=== PATIENT | male | born 1980 | race Asian ===

== ENCOUNTER 2017-04-17 22:28 | Emergency (ER) | payer MEDICAID ==
[~2017-04-17] VITALS: Ht 182.9 cm; Wt 108.9 kg
[2017-04-17 22:38] VITALS: BP_SYST 123
--- NOTE | 2017-04-18 00:10 | NUR ---
Patient to ER bed 8 to gown for evaluation. Side rails up. Report given to SHANNON MENDIOLA.
--- NOTE | 2017-04-18 00:30 | NUR ---
Patient complaining pain to left 4th finger x 2 days. Patient states 11/10 pain. No other complaints/injuries per patient or as noted.Will continue to monitor.
--- NOTE | 2017-04-18 00:36 | NUR ---
ER Dr. Leong at bedside examining patient.
[2017-04-18 01:14] VITALS: BP_SYST 123
--- NOTE | 2017-04-18 01:14 | NUR ---
Patient given written and verbal discharge instructions and verbalizes understanding. ER MD discussed with patient the results and treatment provided. Patient in stable condition. ID arm band removed. Rx of Keflex and motrin given. Patient educated on pain management and to follow up with PMD in 2-3 days. Pain Scale 0/10 Opportunity for questions provided and answered. Medication side effect fact sheet provided.
== END 2017-04-18 01:14 | disposition home or self-care (01) ==
LOC: SED 22:28
DX: L03.012 Cellulitis of left finger (principal); E11.9 Type 2 diabetes mellitus without complications
CPT/HCPCS: 99283

== ENCOUNTER 2017-07-16 12:50 | Emergency (ER) | payer MEDICAID ==
[~2017-07-16] VITALS: Ht 182.9 cm; Wt 102.1 kg
[2017-07-16 12:54] VITALS: BP_SYST 142
[2017-07-16] MEDS ORDERED: DIPH-TET-PERTUS Vaccine 0.5 ML VIAL (ADACEL) I.M. ONE (13:15)
[2017-07-16] MEDS ORDERED: IBUPROFEN 600 MG TABLET PO ONE (13:15)
[2017-07-16] MEDS ORDERED: BACITRACIN 1 GM OINT TP ONE (13:15)
[2017-07-16 13:28] VITALS: BP_SYST 133
== END 2017-07-16 13:25 | disposition home or self-care (01) ==
LOC: SED 12:50
DX: S50.811A Abrasion of right forearm, initial encounter (principal); E11.9 Type 2 diabetes mellitus without complications; W54.0XXA Bitten by dog, initial encounter; Y93.89 Activity, other specified; Y92.89 Other specified places as the place of occurrence of the external cause; Y99.8 Other external cause status
CPT/HCPCS: 90715; 99283

== ENCOUNTER 2017-11-18 14:57 | Emergency (ER) | payer MEDICAID ==
[~2017-11-18] VITALS: Ht 182.9 cm; Wt 102.1 kg
[2017-11-18 15:07] VITALS: BP_SYST 121
--- NOTE | 2017-11-18 15:10 | NUR ---
ER in triage examining patient.
--- NOTE | 2017-11-18 15:11 | NUR ---
Patient to ER bed 3 to gown for evaluation. Side rails up. Report given to William ORTEGA.
--- NOTE | 2017-11-18 15:15 | NUR ---
ER at bedside examining patient.
--- NOTE | 2017-11-18 15:17 | NUR ---
Pt presents to ER c/o rash on R side of upper back since Friday. Pt reports pain 10/10 on pain scale on area of rash. Pt denies any other symptoms. Pt AOX4, ambulatory, speaking full sentences, respirations even and unlabored, no signs of distress.
[2017-11-18 15:20] VITALS: BP_SYST 121
--- NOTE | 2017-11-18 15:20 | NUR ---
Patient given written and verbal discharge instructions and verbalizes understanding. ER MD discussed with patient the results and treatment provided. Patient in stable condition. ID arm band removed. Rx of Clindamycin given. Patient educated on pain management and to follow up with PMD. Pain Scale 3/10. Opportunity for questions provided and answered. Medication side effect fact sheet provided.
== END 2017-11-18 15:20 | disposition home or self-care (01) ==
LOC: SED 14:57
DX: S21.251A Open bite of right back wall of thorax without penetration into thoracic cavity, initial encounter (principal); L03.312 Cellulitis of back [any part except buttock and flank]; E11.9 Type 2 diabetes mellitus without complications; W54.0XXA Bitten by dog, initial encounter; Y93.89 Activity, other specified; Y92.89 Other specified places as the place of occurrence of the external cause; Y99.8 Other external cause status
CPT/HCPCS: 99283

== ENCOUNTER 2017-12-15 19:30 | Emergency (ER) | payer MEDICAID ==
[~2017-12-15] VITALS: Ht 182.9 cm; Wt 99.3 kg
[2017-12-15 19:36] VITALS: BP_SYST 157
[2017-12-15] MEDS ORDERED: LIDOCAINE 1% 10 MG/ML, 20 ML MDV INJ ONE (22:45)
[2017-12-16 00:37] VITALS: BP_SYST 135
== END 2017-12-16 00:37 | disposition home or self-care (01) ==
LOC: SED 19:30
DX: L02.212 Cutaneous abscess of back [any part, except buttock and flank] (principal); R03.0 Elevated blood-pressure reading, without diagnosis of hypertension
CPT/HCPCS: 10060; 99283; J2001

== ENCOUNTER 2020-12-22 11:43 | Emergency (ER) | payer MEDICAID ==
[~2020-12-22] VITALS: Ht 182.9 cm; Wt 99.8 kg
[2020-12-22 11:50] VITALS: BP_SYST 111
--- NOTE | 2020-12-22 11:50 | NUR ---
Pt to hallway 1 for evaluation.
--- NOTE | 2020-12-22 11:55 | NUR ---
Pt AAO and ambulatory reporting right ring finger pain that started last night. Pt reports that something got underneath his nailbed/cuticle and now his hand is swollen with pain radiating up his hand. Pt rates pain 10/10 on pain scale.
--- NOTE | 2020-12-22 12:10 | NUR ---
Dr. Schmidt at bedside to assess.
[2020-12-22] MEDS ORDERED: CEPH-548 PO (12:31)
[2020-12-22] MEDS ORDERED: IBUP-1971 PO (12:31)
[2020-12-22] MEDS ORDERED: IBUPROFEN 800 MG TABLET PO ONE (12:45)
[2020-12-22] MEDS ORDERED: cefTRIAXone 1 GM VIAL IM ONE (12:45)
--- NOTE | 2020-12-22 12:58 | NUR ---
Patient given written and verbal discharge instructions and verbalizes understanding. Dr. Roxana CARO MD discussed with patient the results and treatment provided. Patient in stable condition. ID arm band removed. Rx per MD. Patient educated on pain management and to follow up with PMD. Pain Scale 0/10. Opportunity for questions provided and answered. Medication side effect fact sheet provided.
[2020-12-22 12:59] VITALS: BP_SYST 148
== END 2020-12-22 12:58 | disposition home or self-care (01) ==
LOC: SED 11:43
DX: L03.011 Cellulitis of right finger (principal); E11.9 Type 2 diabetes mellitus without complications
CPT/HCPCS: 96372; 99283; J0696

== ENCOUNTER 2022-09-21 00:39 | Emergency (ER) | payer MEDICAID ==
[~2022-09-21] VITALS: Ht 182.9 cm; Wt 102.1 kg
[~2022-09-21 00:39] MED LIST: CEPH-548 PO; IBUP-1971 PO
[2022-09-21 00:45] VITALS: BP_SYST 119; PULSE 86; RESP 17; TEMP 98; O2SAT 99
--- NOTE | 2022-09-21 00:45 | NUR ---
Patient ambulatory to bed 2 for evaluation and treatment
--- NOTE | 2022-09-21 01:11 | NUR ---
FIRST CONTACT WITH PT. ASSESSMENT COMPLETED. AWAITING EVAL AND ORDERS.
--- NOTE | 2022-09-21 01:39 | NUR ---
md Smalls at bedside for evaluation and orders.
[2022-09-21] MEDS ORDERED: SULF1TAB48 PO (02:28)
[2022-09-21] MEDS ORDERED: IBUP-1969 PO (02:28)
--- NOTE | 2022-09-21 02:35 | NUR ---
Patient given written and verbal discharge instructions and verbalizes understanding. ER MD PLUNKETT discussed with patient the results and treatment provided. Patient in stable condition. ID arm band removed. IV catheter removed intact and dressing applied, no active bleeding. Rx ofIBUPROPHEN AND BACTRIM given. Patient educated on pain management and to follow up with PMD. Pain Scale . Opportunity for questions provided and answered. Medication side effect fact sheet provided.
[2022-09-21 02:37] VITALS: BP_SYST 132; PULSE 82; RESP 18; TEMP 98.3; O2SAT 97
== END 2022-09-21 02:35 | disposition home or self-care (01) ==
LOC: SED 00:39
DX: L03.012 Cellulitis of left finger (principal); M79.89 Other specified soft tissue disorders; E11.9 Type 2 diabetes mellitus without complications; Z79.899 Other long term (current) drug therapy
CPT/HCPCS: 99283; 10060; J7030

== ENCOUNTER 2022-09-25 08:53 | Emergency (ER) | payer MEDICAID ==
[~2022-09-25] VITALS: Ht 182.9 cm; Wt 102.1 kg
[~2022-09-25 08:53] MED LIST changes: +IBUP-1969 PO; +SULF1TAB48 PO
[2022-09-25 08:55] VITALS: BP_SYST 129; PULSE 82; RESP 18; TEMP 98.3; O2SAT 98
[2022-09-25 09:42] VITALS: BP_SYST 129; PULSE 70; RESP 17; TEMP 97.7; O2SAT 96
[2022-09-25] MEDS ORDERED: CEPH-548 PO (09:59)
[2022-09-25] MEDS ORDERED: SULF1TAB48 PO (09:59)
[2022-09-25] MEDS ORDERED: cephALEXin 500 MG CAPSULE PO ONE (10:00)
[2022-09-25] MEDS ORDERED: SULFAMETHOXAZOLE/TRIMETHOPR DS 1 TABLET PO ONE (10:00)
== END 2022-09-25 11:00 | disposition home or self-care (01) ==
LOC: SED 08:53
DX: L03.012 Cellulitis of left finger (principal); M25.442 Effusion, left hand; E11.9 Type 2 diabetes mellitus without complications; Z91.148 Patient's other noncompliance with medication regimen for other reason; Z79.899 Other long term (current) drug therapy
CPT/HCPCS: 99283

== ENCOUNTER 2022-11-19 08:14 | Emergency (ER) | payer MEDICAID ==
[~2022-11-19] VITALS: Ht 177.8 cm; Wt 88.5 kg
[~2022-11-19 08:14] MED LIST changes: +TRAM50TA2 PO
[2022-11-19 08:22] VITALS: BP_SYST 156; PULSE 84; RESP 20; TEMP 98.1; O2SAT 100
[2022-11-19 09:09] VITALS: BP_SYST 144; PULSE 75; RESP 16; TEMP 97.2; O2SAT 98
== END 2022-11-19 08:32 | disposition home or self-care (01) ==
LOC: SED 08:14
DX: Z48.00 Encounter for change or removal of nonsurgical wound dressing (principal); E11.9 Type 2 diabetes mellitus without complications; Z79.899 Other long term (current) drug therapy
CPT/HCPCS: 99281

== ENCOUNTER 2022-12-08 07:22 | Emergency (ER) | payer MEDICAID ==
[~2022-12-08] VITALS: Ht 182.9 cm; Wt 97.5 kg
[2022-12-08 07:22] VITALS: BP_SYST 140; PULSE 81; RESP 18; TEMP 98.2; O2SAT 99
[2022-12-08 07:52] LABS: BASOPHILS % (AUTO) 0.4 % (0.0-2.0); EOSINOPHILS # (AUTO) 0.1 K/uL (0.0-0.4); EOSINOPHILS % (AUTO) 0.8 % (0.0-4.0); HEMATOCRIT 42.4 % (36-54); HEMOGLOBIN 13.5 g/dL (14.0-18.0); LYMPHOCYTES # (AUTO) 1.9 K/uL (1.0-5.5); LYMPHOCYTES % (AUTO) 22.3 % (20.5-51.5); MEAN CORPUSCULAR HEMOGLOBIN 27 pg (27-31); MEAN CORPUSCULAR HGB CONC 32 % (32-36); MEAN CORPUSCULAR VOLUME 85 fL (79.0-98.0); MONOCYTES # (AUTO) 0.6 K/uL (0.0-1.0); MONOCYTES % (AUTO) 6.9 % (1.7-9.3); NEUTROPHILS # (AUTO) 5.8 K/uL (1.8-7.7); NEUTROPHILS % (AUTO) 69.6 % (40.0-70.0); PLATELET COUNT (AUTO) 313 K/uL (130-430); RED BLOOD CELL COUNT(AUTO) 5.01 MIL/uL (4.2-6.2); RED CELL DISTRIBUTION WIDTH 14.3 % (9.0-15.0); WHITE BLOOD COUNT (AUTO) 8.3 K/uL (4.8-10.8)
[2022-12-08 08:06] LABS: CALCIUM 8.4 mg/dL (8.4-11.0); CREATININE 0.55 mg/dL (0.55-1.30); POTASSIUM 3.9 mmol/L (3.5-5.1)
[2022-12-08 08:11] LABS: ALBUMIN 2.8 g/dL (3.4-4.8); TOTAL BILIRUBIN 0.3 mg/dL (0.0-1.0); TOTAL PROTEIN, SERUM 6.3 g/dL (6.4-8.3)
[2022-12-08 08:51] LABS: COVID19 ANTIGEN SOFIA FIA NEGATIVE (NEGATIVE)
[2022-12-08 08:54] LABS: INFLUENZA TYPE A Negative (NEGATIVE); INFLUENZA TYPE B NEGATIVE (NEGATIVE)
[2022-12-08] MEDS ORDERED: AMOX-423 PO (09:47)
[2022-12-08] MEDS ORDERED: ROBAC PO (09:54)
[2022-12-08 09:58] VITALS: BP_SYST 124; PULSE 79; RESP 19; TEMP 98.2; O2SAT 98
[2022-12-08] MEDS ORDERED: [UNRECOGNIZED DRUG - CODE] PO (10:24)
[2022-12-08] MEDS ORDERED: GUAI100S14 PO (10:25)
== END 2022-12-08 09:58 | disposition home or self-care (01) ==
LOC: SED 07:22
DX: J20.9 Acute bronchitis, unspecified (principal); R50.9 Fever, unspecified; R05.9 Cough, unspecified; M79.10 Myalgia, unspecified site; E11.9 Type 2 diabetes mellitus without complications; Z79.899 Other long term (current) drug therapy; Z20.822 Contact with and (suspected) exposure to COVID-19
CPT/HCPCS: 36415; 71045; 80053; 85025; 99284

== ENCOUNTER 2023-01-20 03:59 | Emergency (ER) | payer MEDICAID ==
[~2023-01-20] VITALS: Ht 177.8 cm; Wt 72.6 kg
[~2023-01-20 03:59] MED LIST changes: +AMOX-423 PO; +GUAI100S14 PO; +[UNRECOGNIZED DRUG - CODE] PO
[2023-01-20 04:28] VITALS: BP_SYST 144; PULSE 88; RESP 18; TEMP 98.3; O2SAT 97
[2023-01-20] MEDS ORDERED: ACETAMINOPHEN 650 MG/20.3 ML UDC PO ONE (04:45)
[2023-01-20] MEDS ORDERED: KETOROLAC TROMETHAMINE 30 MG VIAL IM ONE (04:45)
[2023-01-20 05:44] VITALS: BP_SYST 152; PULSE 81; RESP 12; TEMP 97.7; O2SAT 98
== END 2023-01-20 05:44 | disposition home or self-care (01) ==
LOC: SED 03:59
DX: M25.572 Pain in left ankle and joints of left foot (principal); M25.562 Pain in left knee; E11.9 Type 2 diabetes mellitus without complications; Z79.899 Other long term (current) drug therapy
CPT/HCPCS: 99284; 73564; 73610; 73630; 96372; J1885

== ENCOUNTER 2023-10-22 11:52 | Emergency (ER) | payer MEDICAID ==
[~2023-10-22] VITALS: Ht 182.9 cm; Wt 99.8 kg
[2023-10-22 12:19] VITALS: BP_SYST 113; PULSE 102; RESP 18; TEMP 98.5; O2SAT 98
[2023-10-22] MEDS ORDERED: HYDR-3927 PO (14:53)
[2023-10-22] MEDS ORDERED: IBUP-1971 PO (14:53)
[2023-10-22] MEDS: IBUPROFEN 800 MG TABLET PO ONE (15:14)
[2023-10-22] MEDS: HYDROcodone/ACETAMIN 10-325 MG TAB PO ONE (15:15)
[2023-10-22 15:17] VITALS: BP_SYST 113; PULSE 102; RESP 18; TEMP 98.5; O2SAT 98
== END 2023-10-22 15:18 | disposition home or self-care (01) ==
LOC: SED 11:52
DX: S80.02XA Contusion of left knee, initial encounter (principal); E11.9 Type 2 diabetes mellitus without complications; Z79.899 Other long term (current) drug therapy; Z79.2 Long term (current) use of antibiotics; W01.0XXA Fall on same level from slipping, tripping and stumbling without subsequent striking against object, initial encounter; Y93.89 Activity, other specified; Y92.89 Other specified places as the place of occurrence of the external cause; Y99.8 Other external cause status
CPT/HCPCS: 73564; 99283

== ENCOUNTER 2023-11-06 00:29 | Emergency (ER) | payer MEDICAID ==
[~2023-11-06] VITALS: Ht 182.9 cm; Wt 102.1 kg
[~2023-11-06 00:29] MED LIST changes: +HYDR-3927 PO
[2023-11-06 00:38] VITALS: BP_SYST 107; PULSE 106; RESP 20; TEMP 97.3; O2SAT 99
[2023-11-06] MEDS: MORPHINE 4 MG INJ. 4 MG/ML VIAL IM ONE (01:15)
[2023-11-06] MEDS ORDERED: DICL20GE TP (01:56)
[2023-11-06 02:08] VITALS: BP_SYST 111; PULSE 96; RESP 16; TEMP 97.1; O2SAT 95
== END 2023-11-06 02:08 | disposition home or self-care (01) ==
LOC: SED 00:29
DX: M25.562 Pain in left knee (principal); E11.9 Type 2 diabetes mellitus without complications; Z79.899 Other long term (current) drug therapy; Z79.2 Long term (current) use of antibiotics
CPT/HCPCS: 99283; 96372; J2270